=== PATIENT | male | born 1995 | race Two or more races ===

== ENCOUNTER 2024-06-12 21:45 | Emergency (ER) | payer SELFPAY ==
[~2024-06-12] VITALS: Ht 175.3 cm; Wt 68.0 kg
[2024-06-12] MEDS ORDERED: DOXY100C5 PO (22:27)
[2024-06-12 22:29] LABS: *BILIRUBIN,URIN NEGATIVE (NEGATIVE); *BLOOD, URINE 2+ (NEGATIVE); *CLARITY,URINE CLEAR (CLEAR); *COLOR,URINE YELLOW (YELLOW); *KETONES,URINE NEGATIVE (NEGATIVE); *PROTEIN,URINE NEGATIVE (NEGATIVE); *UROBILINOGEN,URINE 0.2 E.U./dl (NORMAL); LEUKOCYTE ESTERASE ,URINE NEGATIVE (NEGATIVE); NITRITE, URINE NEGATIVE (NEGATIVE); PH,URINE 5.5 (5.0-8.0); UGLUCOSE NEGATIVE (NEGATIVE)
[2024-06-12] MEDS ORDERED: LIDOCAINE HCL 1% 20 ML VIAL ONE (22:36)
[2024-06-12] MEDS ORDERED: CEFTRIAXONE 500 MG VIAL ONE (22:36)
[2024-06-12] MEDS ORDERED: DOXYCYCLINE HYCLATE 100 MG TABLET ONE (22:37)
[2024-06-12] MEDS: DOXYCYCLINE HYCLATE 100 MG TABLET PO ONE (22:40)
[2024-06-12] MEDS: CEFTRIAXONE 500 MG VIAL IM ONE (22:40)
[2024-06-12 22:49] LABS: BACTERIA,URINE FEW /HPF (NONE SEEN); SQUAMOUS EPITHELIAL CELL,UR FEW /HPF (NONE SEEN); WBC,URINE 0-3 /HPF (0-3)
[2024-06-12 23:17] VITALS: BP 112/70; TEMP 98; O2SAT 100
== END 2024-06-12 23:17 | disposition home or self-care (01) ==
LOC: ER 21:45
DX: R30.0 Dysuria (principal); R36.9 Urethral discharge, unspecified; F17.210 Nicotine dependence, cigarettes, uncomplicated
CPT/HCPCS: 99283; 99406; 81001; 96372; 87491; J0696; J3490; A4606; A4663